=== PATIENT | female | born 1995 | race Caucasian/White ===

== ENCOUNTER 2017-02-15 13:32 | Day surgery (SDC) | payer MEDICAID ==
[2017-02-15] MEDS ORDERED: LIDOCAINE 1% 2 ML INJ ONE (14:01)
[2017-02-15] MEDS ORDERED: LIDOCAINE 1% 2 ML INJ ID PRN (14:06)
[2017-02-15] MEDS ORDERED: LR 1,000 ML IV ONE (14:06)
--- NOTE | 2017-02-15 15:54 | PDGENHP ---
History & Physical Chief Complaint: Abdominal pain History of Present Illness: Abdominal pain Pertinent Past, Social, Family History: No ETOH. No tobacco Relevant Physical Exam: NAD. CTA B/L. RRR No m/r/g. ABD soft. NABS. NT/ND. No HSM Cardiorespiratory Assessment: ASA I. Abdominal pain. EGD
--- NOTE | 2017-02-15 16:04 | PDANEPAE ---
ANE History of Present Illness STOMACH PAIN ANE Past Medical History - Cardiovascular History Hx Hypertension: No Hx Arrhythmias: No Hx Chest Pain: No Hx Coronary Artery / Peripheral Vascular Disease: No Hx CHF / Valvular Disease: No Hx Palpitations: No - Pulmonary History Hx COPD: No Hx Asthma/Reactive Airway Disease: No Hx Recent Upper Respiratory Infection: No Hx Oxygen in Use at Home: No Hx Sleep Apnea: No Sleep Apnea Screening Result - Last Documented: Negative - Neurologic History Hx Cerebrovascular Accident: No Hx Seizures: No Hx Dementia: No - Endocrine History Hx Diabetes: No - Renal History Hx Renal Disorders: No - Liver History Hx Hepatic Disorders: No - Neurological & Psychiatric Hx Hx Neurological and Psychiatric Disorders: Yes Neurological / Psychiatric History Comment: depression - Cancer History Hx Cancer: No - Congenital Disorder History Hx Congenital Disorders: No - GI History Hx Gastrointestinal Disorders: Yes Gastrointestinal History Comment: hx of colonoscopy. umilical hernia repair at 2 yo. chronic constipation. ibs. pud - Other Health History Other Health History: wears glasses - Chronic Pain History Chronic Pain: No - Surgical History Prior Surgeries: colonoscopy. umbilical hernia repair at 2 yo ANE Review of Systems Review of systems is: negative Review of Systems: - Exercise capacity Exercise capacity: >=4 METS METS (RN): 4 METS ANE Patient History - Allergies Allergies/Adverse Reactions: No Known Allergies Allergy (Verified 01/27/17 11:41) - Home Medications Home Medications: Naltrexone Microspheres [Vivitrol] 02/08/16 [Last Taken 1 Week Ago ~02/08/17] Amitiza 01/27/17 [Last Taken 1 Week Ago ~02/08/17] Ranitidine HCl 01/27/17 [Last Taken 02/14/17 20:00] - NPO status NPO Status: no food or drink >8 hours NPO Since - Liquids (Date): 02/15/17 NPO Since - Liquids (Time): 11:50 NPO Since - Solids (Date): 02/15/17 NPO Since - Solids (Time): 06:00 - Anes Hx Anes Hx: no prior problems - Smoking Hx Smoking Status: Current every day smoker - Alcohol Use Alcohol Use: Heavy (etoh, sober x 3 days) - Family Anes Hx Family Hx Anesthesia Complications: none ANE Labs/Vital Signs - Vital Signs Vital Signs: reviewed preoperatively; see RN documention for details Blood Pressure: 120/75 Heart Rate: 69 Respiratory Rate: 16 O2 Sat (%): 99 Height: 162.56 cm Weight: 59.874 kg ANE Physical Exam - Airway Mallampati Score: Class 2 Mouth exam: normal dental/mouth exam - Pulmonary Pulmonary: no respiratory distress - Cardiovascular Cardiovascular: regular rate and rhythym - ASA Status ASA Status: III ANE Anesthesia Plan Anesthesia Plan: GA with mask
[2017-02-15] MEDS ORDERED: PROPOFOL/EMULSION 500 MG/50 ML BOTTLE IV ONE (16:08)
[2017-02-15] MEDS ORDERED: LIDOCAINE 2% 5 ML SDV ONE (16:08)
--- NOTE | 2017-02-15 16:20 | GIREPORT ---
[facility] - Endoscopy Department Patient Name: Suma Benoit Procedure Date: 02/15/2017 3:54 PM Patient Type: Outpatient Attending MD/ ER Physician: Brett Murray MD Procedure: Upper GI endoscopy Indications: Epigastric abdominal pain, Heartburn, Nausea with vomiting Providers: Brett Murray MD Medicines: Propofol per Anesthesia Complications: No immediate complications. Description of Procedure: After obtaining informed consent, the endoscope was passed under direct vision. Throughout the procedure, the patient's blood pressure, pulse, and oxygen saturations were monitored continuously. The Endoscope was intro duced through the mouth, and advanced to the second part of duodenum. The [facility] er GI endoscopy was accomplished without difficulty. The patient tolerated th e procedure well. Findings: The esophagus was normal. Patchy moderate inflammation characterized by congestion (edema), eryth alejandra and granularity was found in the entire examined stomach. There was als o a focal area of submucosal hemorrhage in the fundus from wretching induce d injury. The examined duodenum was normal. Estimated Blood Loss: Estimated blood loss: none. Post Op Diagnosis: - Normal esophagus. - Alcoholic gastritis. - Wretching injury to the fundus of the stomach. - Normal examined duodenum. - No specimens collected. Recommendation: - Use Zantac (ranitidine) 150 mg PO BID. - Discontinue alcohol consumption. - Return to referring physician as previously scheduled. - Thank you for allowing me to be involved in the care of your patient. Attending Participation: I personally performed the entire procedure without the assistance of a fellow, resident or surg ical information services assistant. Brett Murray MD Brett Murray MD 02/15/2017 4:19:50 PM This report has been signed electronicallyDavid MD Trevor Number of Addenda: 0 Note Initiated On: 02/15/2017 3:54 PM [email or web address]
[2017-02-15] MEDS ORDERED: ONDANSETRON 4 MG/2 ML VIAL IVP PRN (16:21)
[2017-02-15] MEDS ORDERED: NALOXONE HCL 0.4 MG/ML INJ IVP PRN (16:21)
[2017-02-15] MEDS ORDERED: ACETAMINOPHEN 500 MG TAB PO PRN (16:21)
--- NOTE | 2017-02-15 16:22 | POSTANESTH ---
Post Anesthetic Evaluation Cardiovascular Status: Normal, Stable Respiratory Status: Normal, Stable Level of Consciousness/Mental Status: Can Participate in Eval Pain Control: Adequate, Prn Tx Ordered Nausea/Vomiting Control: Adequate, Prn Tx Ordered Complications Possibly Related to Anesthesia: None Noted
[2017-02-15 17:03] VITALS: PULSE 83; RESP 16; O2SAT 99
[2017-02-15 17:04] VITALS: BP 120/79
[2017-02-15 17:06] VITALS: TEMP 97.9
== END 2017-02-15 17:24 | disposition home or self-care (01) ==
LOC: FSGY 13:32
PROVIDERS: ATTEND Internal Medicine Gastroenterology
PROC: 0DJ08ZZ Inspection of Upper Intestinal Tract, Via Natural or Artificial Opening Endoscopic (ICD-10-PCS; principal; 2017-02-15 15:00)
DX: K29.20 Alcoholic gastritis without bleeding (principal); F10.20 Alcohol dependence, uncomplicated; F17.210 Nicotine dependence, cigarettes, uncomplicated
CPT/HCPCS: J2704